=== PATIENT | female | born 1965 | race Caucasian/White ===

== ENCOUNTER 2022-12-08 15:26 | Outpatient (CLI) | payer OTHER, SELFPAY | END 2022-12-08 15:27 | disposition home or self-care (01) | PROVIDERS: PCP Family Medicine; Visit Provider Family Medicine | DX: Z00.00 Encounter for general adult medical examination without abnormal findings (principal); E78.5 Hyperlipidemia, unspecified; I10 Essential (primary) hypertension; E03.9 Hypothyroidism, unspecified; F41.9 Anxiety disorder, unspecified | CPT/HCPCS: 80053; 80061; 84439; 84443 ==

== ENCOUNTER 2023-05-20 14:41 | Outpatient (CLI) | payer OTHER, SELFPAY ==
--- OUTSIDE RECORDS SUMMARY | 2023-05-20 14:43 | XMS_ITS | Continuity of Care Document ---
Author Name Unknown Organization [facility] Address [address] [place] [address] Phone Care Team Providers Care Consulting Sales Manager Name Role Phone Nadira Martinez MD Unavailable Unavailable Allergies, Adverse Reactions, Alerts Substance Reaction Status Criticality phenobarbital Active No Information Medications Medication Instructions Dosage Effective Dates (start - stop) Status Comments nifedipine ER 30 mg tablet,extended release 24 hr DENIED - Active Tirosint 88 mcg capsule take 1 capsule by oral route every day 88 MCG - Active lisinopril 30 mg tablet take 1 tablet (30MG) by oral route every day 30 MG - Active nifedipine ER 30 mg tablet,extended release 24 hr DENIED - No Longer Active Procedures Procedure Date Office/Outpatient Visit, Est Office/Outpatient Visit, Est Office/Outpatient Visit, Est Office/Outpatient Visit, Est Office/Outpatient Visit, New Routine Venipuncture Specimen Handling Rbc Sed Rate, Nonautomated Advance Directives Directive Yes / No Effective Date File Name No Information Encounters Encounter Description Practice Location Reason(s) For Visit Diagnoses Date Provider Providers Copied on Encounter [facility] , [address], [place], [address], tel:[phone] [facility] , No Information 2201 9 Michelle Waddell. [facility] [address], [place], [address], [place]. tel:[phone] [facility] , [address], [place], [address], [place] tel:[phone] [facility] , No Information 9 Stanberry Nadira. [facility] [address], [place], [address], [place]. tel:[phone] Office/Outpa tient Visit, Est [facility] , [address], [place], [address], [place] tel:[phone] [facility] , Raynaud's Syndrome (chief complaint)C entromere antibody positivity (chief complaint)M edication management (chief complaint) Raynaud's syndrome without gangreneAnti body titer raised 7 Stanberry Nadira. [facility] [address], [place], [address], [place]. tel:[phone] Primary Practice Provider: Vannessa Caceres, [address], [address]. tel:[phone] Provider: Nadira Alvarado, [facility] [address], [place], [address]. tel:[phone] Office/Outpa tient Visit, Est [facility] , [address], [place], [address], [place] tel:[phone] [facility] , Raynaud's Syndrome (chief complaint)A bnormal Lab Study (chief complaint) Raynaud's syndrome without gangreneAnti body titer raised 0 6 Stanberry Nadira. [facility] [address], [place], [address], [place]. tel:[phone] Primary Practice Provider: Vannessa Caceres, [facility] [address], [place], [address]. tel:[phone] ng Provider: Nadira Alvarado, [facility] [address], [place], [address]. tel:[phone] Office/Outpa tient Visit, Est [facility] , [address], [place], [address], [place] tel:[phone] [facility] , Raynaud's (chief complaint)a bnormal antibody (chief complaint) Raynaud's syndromeDizz inessAbnorma l antibody titer Melo-0 2-201 5 Michelle Nadira. [facility] [address], [place], [address], [place]. tel:[phone] Primary Practice Provider: Vannessa Caceres, [facility] [address] [place], [address]. tel:[phone] Provider: Nadira Alvarado, [facility] [address], [place], [address]. tel:[phone] Office/Outpa tient Visit, Est [facility] , [address], [place], [address], [place] tel:[phone] [facility] , Raynaud's SyndromeHype rtension, UnspecifiedO ther and unspecified nonspecific immunologica l findings Apr-0 2-201 4 Stanberry Nadira. [facility] [address], [place], [address], [place]. tel:[phone] Primary Practice Provider: Vannessa Caceres, [facility] [address], [place], [address]. tel:[phone] Provider: Nadira Alvarado, [facility] [address], [place], [address]. tel:[phone] Office/Outpa tient Visit, New [facility] , [address], [place], [address], [place] tel:[phone] [facility] , Raynaud's SyndromeOthe r and unspecified nonspecific immunologica l findingsSpra in of other specified sites of hip and thigh Nov-0 5 4 Michelle Waddell. [facility] [address], [place], [address], [place]. tel:[phone] Primary Practice Provider: Vannessa Caceres, [facility] [address], [place], [address]. tel:[phone] ng Provider: Nadira Alvarado, [facility] [address], [place], [address]. tel:[phone] [facility] , [address], [place], [address], [place] tel:[phone] [facility] , No Information 0 4 Michelle Waddell. [facility] [address], [place], [address], [place]. tel:[phone] Family History Family Member Type Diagnosis Age At Onset No Information Payers Payer name Insurance type Covered green party ID Juliet swain(s) [facility] [id number] Social History Type Description Quantity Date Captured Comments Sex Female Smoking Status No Information Chief Complaint And Reason For Visit No Information Reason For Referral Reason For Referral No Information History Of Present Illness Encounter Date Complaint History Of Prese nt Illness Raynaud's Syndrome Centromere antibody positivity Medication management Abnormal Lab Study Raynaud's Syndrome Raynaud's abnormal antibody Functional Status Date Functional Assessmen t No Information Instructions Date Instruction Additional Infor elyssa The nifedipine is co ntinued without change. Related to Raynaud's syndrome without gangrene No further intervent ion is needed.FOLLOWUP: 12 months Related to Antibody titer raised Patient's initial wo rkup in this clinic revealed an antibody against the centromere. This combined with Raynaud's places the patient at high risk for developing limited systemic sclerosis. I was concerned at her first visit about her a decreased skin markings on the distal half of her fingers because this could represent early sclerodactyly. This has not progressed in 16 months. She denies heartburn. There was no evidence of telangiectasias or subcutaneous calcifications on her exam. At this time, she does not merit the diagnosis of scleroderma. Related to Abnormal antibody titer We discussed the sym ptoms of orthostatic hypotension. She seems to be describing this condition. She attributes it to poor nutrition and decreased water consumption. This no longer is an issue. She was advised that if these symtpoms returned and she was unable to treated with improvements in her oral intake then she should discuss this with her primary care provider. It could be treated by decreasing her lisinopril. Related to Dizziness The patient's Raynau d's is controlled on nifedipine 30 mg daily. She denies digital pallor and foot cyanosis over this past winter. The nifedipine will be continued without change. Related to Raynaud's syndrome Assessments Type Assessment Date No Information Patient Care Teams Name Effective Dates (start - stop) Status Members No Information
--- NOTE | 2023-05-20 15:00 | CRLHL7_ITS ---
For Patients: As a result of the Century Cures Act, medical imaging exams and procedure reports are released immediately into your electronic medical record. You may view this report before your referring provider. If you have questions, please contact your health care provider. BILATERAL SCREENING MAMMOGRAM WITH COMPUTER-AIDED DETECTION AND TOMOSYNTHESIS TECHNIQUE: CC and MLO views were obtained. These mammographic images have been obtained using full-field digital technique. These mammographic images were interpreted with the benefit of computer-aided detection. Breast Tomosynthesis was used in this interpretation. COMPARISON FILM: 10/30/21, 10/08/20,09/24/19,09/22/18,09/07/17,09/06/16,08/29/15. FINDINGS: The breasts are heterogeneously dense, which may obscure small masses IMPRESSION: There is no radiographic evidence for malignancy. ASSESSMENT: BI-RADS Category 2: Benign RECOMMENDATION: Routine screening mammogram in 1 year. A lay language report of this examination will be provided to the patient. Eric Castillo M.D. Diagnostic Radiologist [email or web address] HERNAN/Dictated by: Eric Castillo MD @ 05/24/2023 8:53:00 AM (Electronically Signed)
== END 2023-05-20 14:42 | disposition home or self-care (01) ==
LOC: MAMMO 14:41
PROVIDERS: PCP Family Medicine; Visit Provider Family Medicine
DX: Z12.31 Encounter for screening mammogram for malignant neoplasm of breast (principal); R92.2 Inconclusive mammogram
CPT/HCPCS: 77063; 77067

== ENCOUNTER 2024-01-16 07:25 | Outpatient (CLI) | payer OTHER, SELFPAY ==
--- OUTSIDE RECORDS SUMMARY | 2024-01-18 07:12 | XMS_ITS | Clinical Summary ---
Author Name Unknown Organization [facility] Address [place], [place] [address] Care Team Providers Care Academic Support Director Name Role Phone Nadira Martinez MD, PhD Unavailabl e Ana María Conklin MD Unavailable + My Small MD Primary Care Provider + Allergies Active Allergy Reactions Criticality Noted Date Comments Phenobarbital Syncope 04/11/2007 Medications Medication Sig Dispensed Refills Start Date End Date Status apremilast (OTEZLA) 30 mg tab Take by mouth. 0 04/19/2019 Active CPAPIndications:JIM (obstructive sleep apnea) CPAP machine for home use at pressure: 5-16 cm, nasal mask x1/3month with nasal cushion x2/mo; Length of need: 99 months 1 Device 7 11/17/2020 Active NIFEdipine (PROCARDIA XL) 30 mg Extended-Release tabletIndications:Ra ynaud's phenomenon without gangrene TAKE 1 TABLET(30 MG) BY MOUTH EVERY DAY BEFORE A MEAL 60 Tablet 10/08/2022 Active levothyroxine (SYNTHROID) 75 mcg tabletIndications:Hy pothyroidism, unspecified type TAKE 1 TABLET(75 MCG) BY MOUTH BEFORE BREAKFAST 90 Tablet 1 10/26/2022 Active lisinopriL (PRINIVIL; ZESTRIL) 10 mg tabletIndications:HT N (hypertension) Take 1 Tablet (10 mg) by mouth once daily. 30 Tablet 01/06/2023 Active Active Problems Problem Noted Date Diagnosed Date Excessive daytime sleepiness 09/23/2016 Oral herpes 05/31/2014 Abnormal antibody titer 12/26/2013 Overview: 12/26/2013. Low titer antibody against the centromere. Characteristic for limited systemic sclerosis, but does not meet criteria for diagnosis. Will follow up with rheumatology 6 mo Routine adult health maintenance 11/15/2013 Overview: Colonoscopy 10/2013 normal repeat in 10 years Adjustment disorder with anxiety 09/02/2011 h/o panic disorder without agoraphobia 1 Raynaud's phenomenon 10/21/2010 Overview: primary HTN (hypertension) 08/19/2009 Unspecified hypothyroidism 08/07/2009 jim, 10/19/2016 AHI 10 08/05/2009 Other psoriasis 04/11/2007 CONNER I (cervical intraepithelial neoplasia I) Overview: 08/05/2009 LSIL 08/25/2009 [place]: CONNER I 12/31/2019 NIL 07/22/2010 NIL 07/29/2011 LSIL 08/09/2011 [place]: CONNER I 03/01/2012 NIL 08/17/2012 NIL 08/24/2013 ASCUS/HPV Negative 09/04/2014 ASCUS/HPV Negative 11/14/2020 ASCUS/HPV Negative 07/29/2021: [place]: CONNER 1 (repeat pap in 1 year) Provider Plan: Colposcopy or Pap/HPV due 10/2021 (per telephone encounter dated 12/09/2020) Resolved Problems Problem Noted Date Diagnosed Date Resolved Date ASCUS favor benign 09/04/2014 Overview: HPV Neg. LSIL (low grade squamous int raepithelial lesion) on Pap smear 08/09/2011 12/09/2020 Dysthymic disorder 04/11/2007 1 Overview: anxiety/panic attack-Dr. Grayson Immunizations Name Administration Dates Next Due COVID-19 vaccine (Moderna 100mcg/0.5mL) PF, MDV 11/09/2020,10/12/2020 COVID-19 vaccine (Moderna 50mcg/0.5mL) 12YO+ BIVALENT PF, MDV 08/02/2022 COVID-19 vaccine (Moderna Fitz yari 50mcg/0.25mL) PF, MDV 07/20/2021 Influenza Virus, Unspecified 06/09/2021,06/17/20 16,07/03/2014 Influenza, IIV3 (Age >=3 years) 06/15/2011,06/19,07/31/2008 Influenza, IIV4 07/18/2019, 9,06/19/2017,2013 Influenza, IIV4 (=>6mos) MDV 06/13/2020, 07/06/2018,06/15/2018,2015,06/16/2015 Influenza, Injectable, Mdck, Quadrivalent, W/preservative 07/19/2022,06/09/2021 Td (Age >=7 Years) 12/04/2021,12/21/2001 Tdap 01/11/2023,07/29/2011 Zoster (Shingrix-RZV, recombinant) 11/06/2018, Family History Medical History Relation Name Comments Alcoholism Brother Depression Brother Heart attack Brother cardiac arrest at age 50 (otherwise healthy), angiogram, stent placed Heart Disease Father PR, stents Hypertension Father Other Father colon polyps Psychiatric illness Father Panic at [facility] Cancer Maternal Aunt 1 Ovarian canc er, diagnosed 44, 48 yr Cancer Maternal Aunt 2 cervical Stroke Maternal Grandfather Heart Disease Maternal Grandmother quad. bypass No Known Problems Mother Cancer Other [place] cervical Cancer-breast Other [place] age 46, dtr of above, who of ov ca Heart attack Other [place] cousin, son of aunt with ov ca, age 59 yr PR 08/2017. also with COPD and epilepsy Hypothyroidism Sister Psychiatric illness Sister panic, a nxiety Relation Name Status Comments Brother Alive Father (Age 78) PR/stroke Maternal Aunt 1 Maternal Aunt 2 Maternal Grandfather Maternal Grandmother Mother Alive Other [place] Alive Paternal Grandfather Paternal Grandmother Sister Alive Social History Tobacco Use Types Packs/Day Years Used Date Smoking Tobacco: Former Cigarettes 1 10 0 11/02/1983 - 11/02/1993 Smokeless Tobacco: Never Tobacco Cessation:Counseling Given: Yes Alcohol Use Standard Drinks/Week Comments Yes 0 (1 standard drink = 0.6 oz pur e alcohol) 5 drinks per week PHQ-2 Answer Date Recorded PHQ-2 TOTAL SCORE 2 12/04/2021 Social Connections Answer Date Recorded Frequency of Communication with Friends and Fami ly Not on file 09/19/2021 Financial Resource Strain Answer Date R ecorded Difficulty of Paying Living Expenses Not on file 09/19/2021 Difficulty of Paying Living Expenses Not on file 09/19/2021 Sex and Gender Information Value Date Recorded Sex Assigned at Not on file Gender Identity Not on file Sexual Orientation Not on file Obstetrics History Para Term AB IAB SAB Ectopic Multiple Livin g Live Births 2 2 Date Outcome GA Total Labor Labor/2nd/3rd Weight Sex Delivery Anes PTL Luisa A1 A5 Name Cl in Last Filed Vital Signs Vital Sign Reading Time Taken Comments Blood Pressure 118/80 06/15/2023 12:53 PM CDT Pulse 84 06/15/2023 12:53 PM CDT Temperature 36.6 ??C (97.8 ??F) 06/15/2023 12:53 PM C DT Respiratory Rate 12 06/15/2023 12:53 PM CDT Oxygen Saturation 96% 06/15/2023 12:53 PM CDT Inhaled Oxygen Concentration - - Weight 68.9 kg (152 lb) 06/15/2023 1:24 PM CDT Height 167.4 cm (5' 5.91) 12/04/2021 1:09 PM CD T Body Mass Index 24.6 12/04/2021 1:09 PM CDT Plan of Treatment Health Maintenance Due Date Last Done Comments Mammogram for age 45-75 10/30/2022 10/30/19 22 (Verified in Care Everywhere or Patient Record), 10/08/2020, 09/24/2019, Additional history exists BMI (ht and wt on same day) for age 18+ 12/04/2022 12/04/2021, 11/14/2020, 05/16/2020, Additional history exists Depression screening for age 12+ 12/04/2022 12/04/2021, 05/16/2020, 04/23/2019, Additional history exists COVID-19 vaccine series () 05/20/2023 08/02/2022, 04/22/2022, 07/20/2021, Additional history exists Colonoscopy through age 75 11/15/2023 11/15/2013 Pap test for age 21-65 01/12/2024 , 01/11/2023, 11/14/2020, Additional history exists Influenza for age 50-64 05/20/2024 07/19/20 22, 06/09/2021, 06/09/2021, Additional history exists Lipids for age 45-75 12/04/2026 12/04/2021, 05/08/2021, 05/14/2020, Additional history exists Tetanus booster 01/11/2033 01/11/2023, 11/17, 07/29/2011, Additional history exists HIV for age 15-65 Completed 09/06/2013 Hepatitis C screening for age 18-79 Completed 09/06/2013, 08/24/2013 Zoster (shingles) series for age 50+ Completed 11/06/2018, 06/01/2018 Tdap Completed 01/11/2023, 07/29/2011 Pneumococcal series for age 6-64 Aged Out No longer eligible based on patient's age to complete this topic Goals Goal Patient Goal Type Associated Problems Recent Progress Patient-Stated? Author BLOOD PRESSURE-MA INTAINS BP LESS THAN 130/80 Blood Pressure No Vannessa Haskins NP Procedures Procedure Name Priority Date/Time Associated Diagnosis Comments HPV THIN PREP Routine 01/11/2023 12:00 PM CDT LIPID PANEL W REFLEX MEASURED LDL Routine 12/04/2021 2:22 PM CDT Lipid screening SCAN-MAMMOGRAPHY REPORT 10/08/2020 12:00 AM [employer]ER ANTI HIV 1/2 Routine 09/06/2013 6:00 PM [employer] Screen for STD (sexually transmitted disease) ANTI HCV Routine 09/06/2013 6:00 PM [employer] Screen for STD (sexually transmitted disease) from Last 3 Months or Most Recently Relevant to Health Maintenance Results * HPV HIGH RISK (01/11/2023 12:00 PM CDT) TYPE 16 Negative Negative 01/14/2023 11:39 AM CDT [facility] TYPE 18 Negative Negative 01/14/2023 11:39 AM CDT [facility] OTHER HIGH RISK TYPES Negative Negative 01/14/2023 11:39 AM CDT [facility] Other (Cervical/Vagina l) 01/11/2023 12:00 PM CDT 01/12/2023 9:56 AM CDT Narrative [facility] - 01/14/2023 11:39 AM CDT HPV types 16, 18, 31, 33, 35, 39, 45, 51, 52, 56, 58, 59, 66 and 68 DNA were undetectable or below the pre-set threshold. Methodology: [employer] Joseluis 4800 HPV Test My Small MD MICROBIOLOGY [facility] [address] [place] [address], * (ABNORMAL) LIPID PANEL W REFLEX MEASURED LDL (12/04/2021 2:22 PM CDT) CHOLESTEROL,TOTAL 226(H) 100 - 199 mg/dL 12/04/2021 8:47 PM CDT [facility] TRIGLYCERIDES 135 <150 mg/dL 12/04/2021 8:47 PM CDT [facility] HDL CHOLESTEROL 74 >40 mg/dL 8:47 PM CDT [facility] NON-HDL CHOLESTEROL 152(H) <145 mg/dl 12/04/2021 8:47 PM CDT [facility] CHOL/HDL RATIO 3.05 <4.50 12/04/2021 8:47 PM CDT [facility] LDL CHOLESTEROL 125 <=130 mg/dL 12/04/2021 8:47 PM CDT [facility] VLDL CHOLESTEROL 27 <=30 mg/dL 12/04/2021 8:47 PM CDT [facility] PROVIDER ORDERED STATUS RANDOM 12/04/2021 8:47 PM CDT [facility] Blood BLOOD SPECIMEN / Unknown Venipuncture / Unknown 12/04/2021 2:22 PM CDT 12/04/2021 2:23 PM CDT Sarai MORELOS CHEMISTRY [facility] [address] [place] [address], * SCAN-MAMMOGRAPHY REPORT (10/08/2020 12:00 AM [employer]ISQUE PLACER) Anatomical Region Laterality Modality Other Scanner OTHER * ANTI HCV (09/06/2013 6:00 PM [employer]ER) ANTI HCV Non-reacti ve [facility] Blood specimen (specimen) BLOOD SPECIMEN / Unknown 09/06/2013 6:00 PM [employer]ISQUE PLACER 09/06/2013 5:56 PM BISQUE PLACER Vannessa Caceres NP SEND OUTS [facility] [place]NAL ZIP [id number] [address] [place] [address] * ANTI HIV 1/2 (09/06/2013 6:00 PM [employer]QUE PLACER) ANTI HIV 1/2 Non-reacti ve [facility] Blood specimen (specimen) BLOOD SPECIMEN / Unknown 09/06/2013 6:00 PM [employer]QUE PL[employer]ER 09/06/2013 5:56 PM [employer]QUE [employer]ER Vannessa Caceres QUALITY ASSURANCE REPRESENTATIVE [facility] OUTS 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
--- OUTSIDE RECORDS SUMMARY | 2024-01-18 07:12 | XMS_ITS | Continuity of Care Document ---
Author Name Unknown Organization [facility] Address [address] [place] [address] Phone Care Team Providers Care Drug Inspector Name Role Phone Nadira Martinez MD Unavailable [...] [address], [place], [address], tel:[phone] [facility] , No Information 2201 9 Michelle Waddell. [facility] [address], [place], [address], [place]. tel:[phone] [facility] , [address], [place], [address], [place] tel:[phone] [facility] , No Information 9 Michelle Nadira. [facility] [address], [place], [address], [place]. tel:[phone] Office/Outpa tient Visit, Est [facility] , [address], [place], [address], [place] tel:[phone] [facility] , Raynaud's Syndrome (chief complaint)C entromere antibody positivity (chief complaint)M edication management (chief complaint) Raynaud's syndrome without gangreneAnti body titer raised 7 Michelle Nadira. [facility] [address], [place], [address], [place]. tel:[phone] Primary Practice Provider: Vannessa Caceres, [address], [address]. tel:[phone] Provider: Nadira Alvarado, [facility] [address], [place], [address]. tel:[phone] Office/Outpa tient Visit, Est [facility] , [address], [place], [address], [place] tel:[phone] [facility] , Raynaud's Syndrome (chief complaint)A bnormal Lab Study (chief complaint) Raynaud's syndrome without gangreneAnti body titer raised 0 6 Michelle Nadira. [facility] [address], [place], [address], [place]. tel:[phone] Primary Practice Provider: Vannessa Caceres, [facility] [address] [facility], [place], [address]. tel:[phone] ng Provider: Nadira Alvarado, [facility] [address], [place], [address]. tel:[phone] Office/Outpa tient Visit, Est [facility] , [address], [place], [address], [place] tel:[phone] [facility] , Raynaud's (chief complaint)a bnormal antibody (chief complaint) Raynaud's syndromeDizz inessAbnorma l antibody titer Melo-0 2-201 5 [place] Nadira. [facility] [address], [place], [address], [place]. tel:[phone] Primary Practice Provider: Vannessa Caceres, [facility] [address] [place], [address]. tel:[phone] Provider: Nadira Alvarado, [facility] [address], [place], [address]. tel:[phone] Office/Outpa tient Visit, Est [facility] , [address], [place], [address], [place] tel:[phone] [facility] , Raynaud's SyndromeHype rtension, UnspecifiedO ther and unspecified nonspecific immunologica l findings Apr-0 2-201 4 Michelle Nadira. [facility] [address], [place], [address], [place]. tel:[phone] Primary Practice Provider: Vannessa Caceres, [facility] [address] [facility], [place], [address]. tel:[phone] Provider: Nadira Alvarado, [facility] [address], [place], [address]. tel:[phone] Office/Outpa tient Visit, New [facility] , [address], [place], [address], [place] tel:[phone] [facility] , Raynaud's SyndromeOthe r and unspecified nonspecific immunologica l findingsSpra in of other specified sites of hip and thigh Nov-0 5 4 Michelle Waddell. [facility] [address], [place], [address], [place]. tel:[phone] Primary Practice Provider: Vannessa Caceres, [facility] [address] [facility], [place], [address]. tel:[phone] ng Provider: Nadira Alvarado, [facility] [address], [place], [address]. tel:[phone] [facility] , [address], [place], [address], [place] tel:[phone] [facility] , No Information 0 4 Michelle Waddell. [facility] [address], [place], [address], [place]. tel:[phone] Family History Family Member Type Diagnosis Age At Onset No Information Payers Payer name Insurance type Covered constitution party ID Juliet swain(s) [facility] [id number] Social History Type Description Quantity Date Captured [...] Information Instructions Date Instruction Additional Infor elyssa No further intervent ion is needed.FOLLOWUP: 12 months Related to Antibody titer raised The nifedipine is co ntinued without change. Related to Raynaud's syndrome without gangrene Patient's initial wo rkup in this clinic [...]
--- OUTSIDE RECORDS SUMMARY | 2024-01-18 07:12 | XMS_ITS | Referral Summary ---
Author Name Unknown Organization [facility] Address [address] [place] [address] Care Team Providers Care Electrician Supervisor Name Role Phone Sarai Amaya PA-C Primary Care Provider Unav ailable Social History Tobacco Use Types Packs/Day Years Used Date Smoking Tobacco: Never Assessed Adolescent Education Answer Date Record ed Getting School Help Needed Not on file 06/26 Sex and Gender Information Value Date Recorded Sex Assigned at Not on file Gender Identity Not on file Sexual Orientation Not on file Plan of Treatment Not on file Procedures Procedure Name Priority Date/Time Associated Diagnosis Comments MA SCREENING BILATERAL W/ HEMANT Routine 10/30/2021 1:22 PM TROLLEY WIRE INSTALLER Visit for screening mammogram from Last 3 Months or Most Recently Relevant to Health Maintenance Results * MA Screen Bilateral w/Hemant (10/30/2021 1:22 PM TROLLEY WIRE INSTALLER) Anatomical Region Laterality Modality Breast Bilateral Mammography Narrative 10/30/2021 1:49 PM TROLLEY WIRE INSTALLER BILATERAL FULL FIELD DIGITAL SCREENING MAMMOGRAM WITH TOMOSYNTHESIS Performed on: 10/30/21 Compared to: 10/08/2020 and 09/24/2019 Technique: ??This study was evaluated with the assistance of Computer-Aided Detection. ??Breast Tomosynthesis was used in interpretation. Findings: The breasts have scattered areas of fibroglandular density. ?? There is no radiographic evidence of malignancy. IMPRESSION: ACR BI-RADS Category 1: Negative RECOMMENDED FOLLOW-UP: Annual routine screening mammogram The results and recommendations of this examination will be communicated to the patient. Sarai Amaya PA-C [facility] MAMMOGRAPHY ORD ERABLES from Last 3 Months or Most Recently Relevant to Health Maintenance Care Teams Electrician Supervisor Relationship Specialty Start Date End Date Sarai Amaya PA-C PCP - General 10/14/21
--- OUTSIDE RECORDS SUMMARY | 2024-01-18 07:12 | XMS_ITS | Clinical Summary ---
Author Name Unknown Organization [facility] Address [address] [place] [address] Care Team Providers Care Radiation Oncology Therapist Name Role Phone Sarai Amaya PA-C Primary [...] Orientation Not on file Plan of Treatment Health Maintenance Due Date Last Done Comments ADVANCE CARE PLANNING 1963 ANNUAL REVIEW OF HM ORDERS 1963 CT COLONOGRAPHY 1963 FIT 1963 FLEX SIG 1963 GLUCOSE 1963 sDNA (Cologuard) 1963 COLONOSCOPY 1973 COLORECTAL CANCER SCREENING 1973 HIV SCREENING 1978 HEPATITIS C SCREENING 1981 LIPID 2003 YEARLY PREVENTIVE VISIT 05/16/2021 05/16/2020 DTAP/TDAP/TD IMMUNIZATION (2 - Td or Tdap) 07/29/2021 07/29/2011, 12/21/2001 COVID-19 Vaccine ( season) 2023 07/20/2021, 11/09/2020, 10/12/2020 INFLUENZA VACCINE (#1) 2023 , 06/09/2021, 06/13/2020, Additional history exists RSV VACCINE ( & 60+) (1 - 1-dose 60+ series) 2023 PHQ-2 (once per calendar year) 2023 MAMMO SCREENING 10/30/2023 10/30/2021, 09/20, 09/24/2019, Additional history exists PAP 11/14/2023 11/14/2020 ZOSTER IMMUNIZATION Completed 11/06/2018, 8 HPV IMMUNIZATION Aged Out No longer e ligible based on patient's age to complete this topic IPV IMMUNIZATION Aged Out No longer e ligible based on patient's age to complete this topic MENINGITIS IMMUNIZATION Aged Out No l onger eligible based on patient's age to complete this topic Pneumococcal Vaccine: Pediatrics (0 to 5 Years) and At-Risk Patients (6 to 64 Years) Aged Out No longer eligible based on patient's age to complete this topic RSV MONOCLONAL ANTIBODY Aged Out No l onger eligible based on patient's age to complete this topic Procedures Procedure Name Priority Date/Time Associated Diagnosis Comments MA SCREENING BILATERAL W/ HEMANT Routine 10/30/2021 1:22 PM SENIOR NET WEB DEVELOPER Visit for screening mammogram from Last 3 Months or Most Recently Relevant to Health Maintenance Results * MA Screen Bilateral w/Hemant (10/30/2021 1:22 PM SENIOR NET WEB DEVELOPER) Anatomical Region Laterality Modality Breast Bilateral Mammography Narrative 10/30/2021 1:49 PM SENIOR NET WEB DEVELOPER BILATERAL FULL FIELD DIGITAL SCREENING MAMMOGRAM WITH [...] Recently Relevant to Health Maintenance Care Teams Radiation Oncology Therapist Relationship Specialty Start Date End Date Sarai Amaya PA-C PCP - General 10/14/21
== END 2024-01-16 07:26 | disposition home or self-care (01) ==
LOC: NFLDREF 01-18 07:10
PROVIDERS: PCP Family Medicine; Referring Provider Family Medicine; Visit Provider Family Medicine
DX: E03.9 Hypothyroidism, unspecified (principal); E78.5 Hyperlipidemia, unspecified; I10 Essential (primary) hypertension
CPT/HCPCS: 80053; 80061; 82306; 84439; 84443

== ENCOUNTER 2024-03-06 06:22 | Outpatient (CLI) | payer OTHER, SELFPAY ==
--- OUTSIDE RECORDS SUMMARY | 2024-03-06 06:27 | XMS_ITS | Referral Summary ---
Author Organization [facility] Address [address] [place] [address] Care Team Providers Care Membership Advisor Name Role Phone Sarai Amaya PA-C Primary [...] BILATERAL W/ HEMANT Routine 10/30/2021 1:22 PM BLEACH TESTER Visit for screening mammogram from Last 3 Months or Most Recently Relevant to Health Maintenance Results * MA Screen Bilateral w/Hemant (10/30/2021 1:22 PM BLEACH TESTER) Anatomical Region Laterality Modality Breast Bilateral Mammography Narrative 10/30/2021 1:49 PM BLEACH TESTER BILATERAL FULL FIELD DIGITAL SCREENING MAMMOGRAM WITH [...] Recently Relevant to Health Maintenance Care Teams Membership Advisor Relationship Specialty Start Date End Date Sarai Amaya PA-C PCP - General 10/14/21
--- OUTSIDE RECORDS SUMMARY | 2024-03-06 06:27 | XMS_ITS | Continuity of Care Document ---
Author Organization [facility] Address [address] [place] [address] Phone Care Team Providers Care Tax Manager Name Role Phone Nadira Martinez MD [...] [address], [place], [address], [place] tel:[phone] [facility] , No Information 2201 9 Michelle Waddell. [facility] [address], [place], [address], [place]. tel:[phone] [facility] , [address], [place], [address], [place] tel:[phone] [facility] , No Information 9 Michelle Nadira. [facility] [address], [place], [address], [place]. tel:[phone] Office/Outpa tient Visit, Est [facility] , [address], [place], [address], [place] tel:[phone] [facility] , Raynaud's Syndrome (chief complaint)C entromere antibody positivity (chief complaint)M edication management (chief complaint) Raynaud's syndrome without gangreneAnti body titer raised 7 [place] Nadira. [facility] [address], [place], [address], [place]. tel:[phone] Primary Practice Provider: Vannessa Caceres, [address], [address]. tel:[phone] Provider: Nadira Alvarado, [facility] [address], [place], [address]. tel:[phone] Office/Outpa tient Visit, Est [facility] , [address], [place], [address], [place] tel:[phone] [facility] , Raynaud's Syndrome (chief complaint)A bnormal Lab Study (chief complaint) Raynaud's syndrome without gangreneAnti body titer raised 6 Michelle Nadira. [facility] [address], [place], [address], [place]. tel:[phone] Primary Practice Provider: Vannessa Caceres, [facility] [address] [facility], [place], [address]. tel:[phone] Provider: Nadira Alvarado, [facility] [address], [place], [address]. tel:[phone] Office/Outpa tient Visit, Est [facility] , [address], [place], [address], [place] tel:[phone] [facility] , Raynaud's (chief complaint)a bnormal antibody (chief complaint) Raynaud's syndromeDizz inessAbnorma l antibody titer Melo-0 2-201 5 [place] Nadira. [facility] [address], [place], [address], [place]. tel:[phone] Primary Practice Provider: Vannessa Caceres, [facility] [address] [place], [address]. tel:[phone] Provider: Nadira Alvarado, [facility] [address], [place], [address]. tel:[phone] Office/Outpa tient Visit, Est [facility] , [address], [place], [address], [place] tel:[phone] [facility] , Raynaud's SyndromeHype rtension, UnspecifiedO ther and unspecified nonspecific immunologica l findings Apr-0 2-201 4 Michelle Nadira. [facility] [address], [place], [address], [place]. tel:[phone] Primary Practice Provider: Vannessa Caceres, [facility] [address] [facility], [place], [address]. tel:[phone] Provider: Nadira Alvarado, [facility] [address], [place], [address]. tel:[phone] Office/Outpa tient Visit, New [facility] , [address], [place], [address], [place] tel:[phone] [facility] , Raynaud's SyndromeOthe r and unspecified nonspecific immunologica l findingsSpra in of other specified sites of hip and thigh Nov-0 5-201 4 Michelle Waddell. [facility] [address], [place], [address], [place]. tel:[phone] Primary Practice Provider: Vannessa Caceres, [address], [address]. tel:[phone] Provider: Nadira Alvarado, [facility] [address], [place], [address]. tel:[phone] [facility] , [address], [place], [address], [place] tel:[phone] [facility] , No Information Nov-0 4 Michelle Waddell. [facility] [address], [place], [address], [place]. tel:[phone] Family History Family Member Type Diagnosis Age At Onset No Information Payers Payer name Insurance type Covered green party ID Juliet swain(s[id number] Social History Type Description Quantity Date Captured [...]
--- OUTSIDE RECORDS SUMMARY | 2024-03-06 06:27 | XMS_ITS | Clinical Summary ---
Author Organization [facility] Address [place], [place] [address] Care Team Providers Care School Bus Technician Name Role Phone Nadira Martinez MD, PhD [...] intraepithelial neoplasia I) Overview: 08/05/2009 LSIL 08/25/2009 [place]: CONNER I 12/31/2019 NIL 07/22/2010 NIL 07/29/2011 LSIL 08/09/2011 [place]: CONNER I 03/01/2012 NIL 08/17/2012 NIL 08/24/2013 ASCUS/HPV Negative 09/04/2014 ASCUS/HPV Negative 11/14/2020 ASCUS/HPV Negative 07/29/2021: [place]: CONNER 1 (repeat pap in 1 year) Provider Plan: Colposcopy or Pap/HPV due 10/2021 (per telephone encounter dated 12/09/2020) Resolved Problems Problem Noted Date Diagnosed Date Resolved Date ASCUS favor benign 09/04/2014 Overview: HPV Neg. LSIL (low grade squamous int raepithelial lesion) on Pap smear 08/09/2011 12/09/2020 Dysthymic disorder 04/11/2007 1 Overview: anxiety/panic attack-Dr. Grayson Encounters Date Type Department Care Team Description 01/23/2024 Lab Requisition [facility] [phone] My Small MD from Last 3 Months Immunizations Name Administration Dates Next Due COVID-19 [...] healthy), angiogram, stent placed Heart Disease Father NV, stents Hypertension Father Other Father colon polyps Psychiatric illness Father Panic at tacks Cancer Maternal Aunt 1 Ovarian canc er, diagnosed 44, 48 yr Cancer Maternal Aunt 2 cervical Stroke Maternal Grandfather Heart Disease Maternal Grandmother quad. bypass No Known Problems Mother Cancer Other [place]in cervical Cancer-breast Other Mcousin age 46, dtr of above, who of ov ca Heart attack Other [place] cousin, son of aunt with ov ca, age 59 yr NV 08/2017. also with COPD and epilepsy Hypothyroidism Sister Psychiatric illness Sister panic, a nxiety Relation Name Status Comments Brother Alive Father (Age 78) NV/stroke Maternal Aunt 1 Maternal Aunt 2 Maternal [...] Outcome GA Total Labor Labor/2nd/3rd Weight Sex Type Anes PTL Luisa A1 A5 Name Clin Last Filed Vital Signs Vital Sign Reading [...] Comments Mammogram for age 45-75 10/30/2022 10/30/19 (Verified in Care Everywhere or Patient Record), 10/08/2020, 09/24/2019, Additional history exists BMI (ht and wt on same day) for age 18+ 12/04/2022 12/04/2021, 11/14/2020, 05/16/2020, Additional history exists Depression screening for age 12+ 12/04/2022 12/04/2021, 05/16/2020, 04/23/2019, Additional history exists COVID-19 vaccine series ( - 2022-24 season) 2023 08/02/2022, 04/22/2022, 07/20/2021, Additional history exists Colonoscopy through age 75 11/15/2023 11/15/2013 Influenza for age 50-64 05/20/2024 07/19/20 22, 06/09/2021, 06/09/2021, Additional history exists Pap test for age 21-65 01/19/2025 , 01/20/2024, 01/11/2023, Additional history exists Lipids for age 45-75 [...] Procedure Name Priority Date/Time Associated Diagnosis Comments LAB TRACKING EVENT Routine 01/20/2024 1: 20 PM CDT ASSAYER HELPER THIN PREP PAP SCREEN IMAGED Routine 01/20/2024 1:20 PM CDT HPV THIN PREP Routine 01/20/2024 1:20 PM CDT LIPID PANEL W REFLEX MEASURED LDL Routine 12/04/2021 2:22 PM CDT Lipid screening SCAN-MAMMOGRAPHY REPORT 10/08/2020 12:00 AM AIRPLANE COVERER ANTI HIV 1/2 Routine 09/06/2013 6:00 PM AIRPLANE COVERER Screen for STD (sexually transmitted disease) ANTI HCV Routine 09/06/2013 6:00 PM AIRPLANE COVERER Screen for STD (sexually transmitted disease) from Last 3 Months or Most Recently Relevant to Health Maintenance Results * LAB TRACKING EVENT (01/20/2024 1:20 PM CDT) Other (Other) Client Collect / Unknown 01/20/2024 1:20 PM CDT 01/23/2024 3:46 PM CDT My Small MD LAB BILL ONLY [facility] [address] [place] [address], * ASSAYER HELPER THIN PREP PAP SCREEN IMAGED (01/20/2024 1:20 PM CDT) Case Report Gynecologic Cytology Report ? Case: [id number] ? Authorizing Provider: ??My Small MD ??Collected: ? 01/20/2024 1320 ? Ordering Location: ? [facility] ?Received: ?01/24/2024 0956 ? First Screen: ?Ania Mishra ? Pathologist: ? Philippe Rojas Jr., ? MD ? Specimen: ?ASSAYER HELPER ThinPrep Vial Screening, Cervical/Vaginal ? 02/02/2024 12:59 PM CDT [facility] INTERPRETATION/ RESULT NEGATIVE FOR INTRAEPITHELIAL LESION OR MALIGNANCY (NIL) (none) 02/02/2024 12:59 PM CDT [facility] R NON-NEOPLASTIC FINDING(S) Reactive cellular changes associated with inflammation/repa ir 02/02/2024 12:59 PM CDT [facility] SPECIMEN ADEQUACY Satisfactory for evaluation Endocervical component present 02/02/2024 12:59 PM CDT [facility] HPV REQUEST HPV and PAP 02/02/2024 12:59 PM CDT [facility] Date of LMP 02/02/2024 12:59 PM CDT [facility] Comment:Unknown Last Pap Date 01/11/2023 02/02/2024 12:59 PM CDT [facility] Last Pap Result NIL 12:59 PM CDT [facility] Abnormal Pap or [place] Bx in last 5 years Yes 02/02/2024 12:59 PM CDT [facility] Menstrual Status Postmenopausal 02/02/2024 12:[address] [facility] [place] Bx Done Today No 02/02/2024 12:[address] [facility] Additional Information 02/02/2024 12:[address] [facility] Comment: Interpreted at [facility] - [address] [place] [address], [place] [address] Automated Review Successful 02/02/2024 12:[address] [facility] Comment:Specimen processed s uccessfully by automated dispatcher service device, ThinPrep Imaging System, [employer] ANCILLARY TESTING ASSAYER HELPER HPV Ordered, Please see separate report 02/02/2024 12:[address] [facility] Note The pap test is a screening technique, not a diagnostic procedure. It is used primarily to screen for squamous cancers and precursor lesions. Published studies have shown that it is subject to both false negative and false positive results. The pap test should not be used as the sole means to diagnose or exclude pre-malignant and malignant lesions. 02/02/2024 12:[address] [facility] Other (Cervical/Vagina l) 01/20/2024 1:20 PM CDT 01/24/2024 9:56 AM CDT My Small MD PATHOLOGY/CYTOLO GY [facility] [address] [place] [address], * HPV HIGH RISK (01/20/2024 1:20 PM CDT) TYPE 16 Negative Negative 01/25/2024 4:55 PM CDT [facility] TYPE 18 Negative Negative 01/25/2024 4:55 PM CDT [facility] OTHER HIGH RISK TYPES Negative Negative 01/25/2024 4:55 PM CDT [facility] Other (Cervical/Vagina l) 01/20/2024 1:20 PM CDT 01/24/2024 9:56 AM CDT Narrative [facility] - 01/25/2024 4:55 PM CDT HPV types 16, 18, 31, 33, 35, 39, 45, 51, 52, 56, 58, 59, 66 and 68 DNA were undetectable or below the pre-set threshold. Methodology: Cindy Joseluis 4800 HPV Test My Small MD MICROBIOLOGY [facility] [address] [place] [address], * (ABNORMAL) LIPID PANEL W REFLEX MEASURED LDL (12/04/2021 2:22 PM CDT) CHOLESTEROL,TOTAL 226(H) 100 - 199 mg/dL 12/04/2021 8:47 PM CDT [facility] TRIGLYCERIDES 135 <150 mg/dL 12/04/2021 8:47 PM CDT [facility] HDL CHOLESTEROL 74 >40 mg/dL 8:47 PM CDT [facility] NON-HDL CHOLESTEROL 152(H) <145 mg/dl 12/04/2021 8:47 PM CDT [facility] CHOL/HDL RATIO 3.05 <4.50 12/04/2021 8:47 PM CDT [facility] LDL CHOLESTEROL 125 <=130 mg/dL 12/04/2021 8:47 PM CDT [facility] VLDL CHOLESTEROL 27 <=30 mg/dL 12/04/2021 8:47 PM CDT [facility] PROVIDER ORDERED STATUS RANDOM 12/04/2021 8:47 PM CDT [facility] Blood BLOOD SPECIMEN / Unknown Venipuncture / Unknown 12/04/2021 2:22 PM CDT 12/04/2021 2:23 PM CDT Sarai MORELOS CHEMISTRY [facility] [address] [place] [address], * SCAN-MAMMOGRAPHY REPORT (10/08/2020 12:00 AM AIRPLANE COVERER) Anatomical Region Laterality Modality Other Scanner OTHER * ANTI HCV (09/06/2013 6:00 PM AIRPLANE COVERER) ANTI HCV Non-reacti ve [facility] Blood specimen (specimen) BLOOD SPECIMEN / Unknown 09/06/2013 6:00 PM AIRPLANE COVERER 09/06/2013 5:56 PM AIRPLANE COVERER Vannessa Caceres POWER BUILDER DEVELOPER SEND OUTS [facility] INTERNAL ZIP [address] [place] [address] * ANTI HIV 1/2 (09/06/2013 6:00 PM AIRPLANE COVERER) ANTI HIV 1/2 Non-reacti ve [facility] Blood specimen (specimen) BLOOD SPECIMEN / Unknown 09/06/2013 6:00 PM AIRPLANE COVERER 09/06/2013 5:56 PM AIRPLANE COVERER Vannessa Caceres POWER BUILDER DEVELOPER SEND OUTS [facility] INTERNAL ZIP [address] [place] [address] from Last 3 Months or Most Recently Relevant to Health Maintenance Advance Directives Documents on File Type Date Recorded Patient Manufacturing Sr Engineer Expl anation Healthcare Directive 04/20/2019 2:05 PM [facility], [facility], 03/08/19 Care Teams School Bus Technician Relationship Specialty Start Date End Date My Small MD [address] [place] [address] PCP - General Family Practice 04/05/23 Nadira Martinez MD, PhD Rheumatology 09/04/14 Ana María Conklin MD [address] [place] [address] Dermatology 04/26/17
--- OUTSIDE RECORDS SUMMARY | 2024-03-06 06:27 | XMS_ITS | Clinical Summary ---
Author Organization [place] Address [address] [place] [address] Care Team Providers Care Cracker And Cookie Machine Operator Name Role Phone Sarai Amaya PA-C Primary [...] Vaccine ( season) 2023 07/20/2021, 11/09/2020, 10/12/2020 RSV VACCINE ( & 60+) (1 - 1-dose 60+ series) 2023 PHQ-2 (once per calendar year) 2023 MAMMO SCREENING 10/30/2023 10/30/2021, 09/20, 09/24/2019, Additional history exists PAP 11/14/2023 11/14/2020 INFLUENZA VACCINE (Season Ended) 2024 06/09/2021, 06/09/2021, 06/13/2020, Additional history exists ZOSTER IMMUNIZATION Completed 11/06/2018, 8 HPV IMMUNIZATION [...] BILATERAL W/ HEMANT Routine 10/30/2021 1:22 PM ASSOCIATE RESEARCH SCIENTIST Visit for screening mammogram from Last 3 Months or Most Recently Relevant to Health Maintenance Results * MA Screen Bilateral w/Hmeant (10/30/2021 1:22 PM ASSOCIATE RESEARCH SCIENTIST) Anatomical Region Laterality Modality Breast Bilateral Mammography Narrative 10/30/2021 1:49 PM ASSOCIATE RESEARCH SCIENTIST BILATERAL FULL FIELD DIGITAL SCREENING MAMMOGRAM WITH [...] Recently Relevant to Health Maintenance Care Teams Cracker And Cookie Machine Operator Relationship Specialty Start Date End Date Sarai Amaya PA-C PCP - General 10/14/21
--- NOTE | 2024-03-06 08:01 | W.ANESCHARGE ---
Anesthesia Charges Start Date/Time Anesthesia Start Date: 03/06/24 Anesthesia Start Time: 07:31 Stop Date/Time Anesthesia Stop Date: 03/06/24 Anesthesia Stop Time: 07:58
--- NOTE | 2024-03-06 09:41 | W.ANESCHARGE ---
Anesthesia Charges Start Date/Time Anesthesia Start Date: 03/06/24 Anesthesia Start Time: 07:31 Stop Date/Time Anesthesia Stop Date: 03/06/24 Anesthesia Stop Time: 07:58
== END 2024-03-06 06:23 | disposition home or self-care (01) ==
LOC: OP CLINIC 06:25
PROVIDERS: PCP Family Medicine; Visit Provider Surgery
DX: Z12.11 Encounter for screening for malignant neoplasm of colon (principal); K63.5 Polyp of colon; K57.30 Diverticulosis of large intestine without perforation or abscess without bleeding
CPT/HCPCS: 00811; 00812; 45385; 88305; J2704

== ENCOUNTER 2024-04-23 07:20 | Outpatient (CLI) | payer OTHER, SELFPAY ==
--- OUTSIDE RECORDS SUMMARY | 2024-04-23 13:32 | XMS_ITS | Clinical Summary ---
Author Organization [facility] Address [address], [place] [address] Care Team Providers Care Joint Setter Name Role Phone Unassigned, Provider Primary Care Provider Unava ilable Source Comments You are receiving this document as you are listed as the primary care provider,follow-up provider, or the patient has been referred to you for consultation.This is in compliance with the Medicare and[facility] EHR Incentive Program,which states Providers who transition their patient to another setting of careor provider of care or refers their patient to another provider of care shouldprovide summary care record for each transition of care or referral. [facility] Encounters Date Type Department Care Team Description 04/03/2024 4:00 PM CDT Office Visit [facility] [address] [address] Patricia Burgos, PT BPPV (benign paroxysmal positional vertigo), right (Primary Dx) from Last 3 Months Social History Tobacco Use Types Packs/Day Years Used Date Smoking Tobacco: Never Assessed Sex and Gender Information Value Date Recorded Sex Assigned at Not on file Gender Identity Not on file Sexual Orientation Not on file Plan of Treatment Upcoming Encounters Date Type Department Care Team (Late st Contact Info) Description 04/26/2024 8:45 AM CDT Appointment [facility] [address] [address] [place] [address] [place] [address] Health Maintenance Due Date Last Done Comments Colon Cancer Screening Plan Due 1963 Hep C Screening (Preventive Services) 1965 Mammogram 1963 HIV Screening (Preventive Services) 1979 Adult Preventive Visit 1981 DTaP/Tdap/Td (1 - Tdap) 1982 Cervical Cancer Screening Due 01/19/2000, 07/30/1998 Cholesterol 2008 Zoster/Shingles (1 of 2) 2013 COVID-19 Vaccine (1 - 2022-2 4 season) 2023 Influenza (#1) 2024 HepA Aged Out No longer eligi ble based on patient's age to complete this topic HepB Aged Out No longer eligi ble based on patient's age to complete this topic Hib Aged Out No longer eligi ble based on patient's age to complete this topic IPV (Polio) Aged Out No longer eligi ble based on patient's age to complete this topic MCV4 Aged Out No longer eligi ble based on patient's age to complete this topic Pneumococcal Aged Out No longer eligi ble based on patient's age to complete this topic Procedures Procedure Name Priority Date/Time Associated Diagnosis Comments ANATOMICAL PATH-C Routine 01/18/2000 1:1 9 PM CDT from Last 3 Months or Most Recently Relevant to Health Maintenance Results * Anatomical Path-C (01/18/2000 1:19 PM CDT) PAP Smear SEE TEXT No normal range HP CONVERSION Comment: Patient: MILO ROY ? CERVICAL CYTOLOGY REPORT Pathology # ??[id number] ?Date Obtained: ? Date Received: LMP: ?6-99 CLINICAL HIST ? 6 WKS PP. CERVICAL SMEAR SPECIMEN ADEQUACY: ?? Satisfactory. ENDOCERVICAL CELLS: ??Present. CYTOLOGIC IMPRESSION: Within Normal Limits (Negative). Verified 01/22/00 by: ??SN ? (electronic signature) 01/18/2000 1:19 PM CDT Dixon Mercado MD LAB_1 HP CONVERSION from Last 3 Months or Most Recently Relevant to Health Maintenance Care Teams Joint Setter Relationship Specialty Start Date End Date Unassigned, Provider [address] [place] [address] PCP - General 09/07/00
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
--- OUTSIDE RECORDS SUMMARY | 2024-04-23 13:32 | XMS_ITS | Clinical Summary ---
Author Organization [facility] Address [address] [place] [address] Care Team Providers Care Tongue Binder Name Role Phone Sarai Amaya PA-C Primary [...] history exists PAP 11/14/2023 11/14/2020 INFLUENZA VACCINE (#1) 2024 1, 06/09/2021, 06/13/2020, Additional history exists ZOSTER IMMUNIZATION [...] BILATERAL W/ HEMANT Routine 10/30/2021 1:22 PM [facility] Visit for screening mammogram from Last 3 Months or Most Recently Relevant to Health Maintenance Results * MA Screen Bilateral w/Hemant (10/30/2021 1:22 PM [facility]) Anatomical Region Laterality Modality Breast Bilateral Mammography Narrative 10/30/2021 1:49 PM [facility] BILATERAL FULL FIELD DIGITAL SCREENING MAMMOGRAM WITH [...] Recently Relevant to Health Maintenance Care Teams Tongue Binder Relationship Specialty Start Date End Date Sarai Amaya PA-C PCP - General 10/14/21
--- OUTSIDE RECORDS SUMMARY | 2024-04-23 13:32 | XMS_ITS | Continuity of Care Document ---
Author Organization [facility] Address [address] [place] [address] Phone Care Team Providers Care Senior Partner Name Role Phone Nadira Martinez MD Unavailable [...] [address], [place], [address], [place] tel:[phone] [facility] , No Information 2201 9 Michelle Waddell. [facility] [address], [place], [address], [place]. tel:[phone] [facility] , [address], [place], [address], [place] tel:[phone] [facility] , No Information 9 Ihlen Nadira. [facility] [address], [place], [address], [place]. tel:[phone] Office/Outpa tient Visit, Est [facility] , [address], [place], [address], [place] tel:[phone] [facility] , Raynaud's Syndrome (chief complaint)C entromere antibody positivity (chief complaint)M edication management (chief complaint) Raynaud's syndrome without gangreneAnti body titer raised 7 Ihlen Nadira. [facility] [address], [place], [address], [place]. tel:[phone] Primary Practice Provider: Vannessa Caceres, [address], [address]. tel:[phone] Provider: Nadira Alvarado, [facility] [address], [place], [address]. tel:[phone] Office/Outpa tient Visit, Est [facility] , [address], [place], [address], [place] tel:[phone] [facility] , Raynaud's Syndrome (chief complaint)A bnormal Lab Study (chief complaint) Raynaud's syndrome without gangreneAnti body titer raised 6 Ihlen Nadira. [facility] [address], [place], [address], [place]. tel:[phone] Primary Practice Provider: Vannessa Caceres, Formerly [facility] [address] [facility], [place], [address]. tel:[phone] Provider: Nadira Alvarado, [facility] [address], [place], [address]. tel:[phone] Office/Outpa tient Visit, Est [facility] , [address], [place], [address], [place] tel:[phone] [facility] , Raynaud's (chief complaint)a bnormal antibody (chief complaint) Raynaud's syndromeDizz inessAbnorma l antibody titer Melo-0 2-201 5 Michelle Nadira. [facility] [address], [place], [address], [place]. tel:[phone] Primary Practice Provider: Vannessa Caceres, [facility] [address] [place], [address]. tel:[phone] Provider: Nadira Alvarado, [facility] [address], [place], [address]. tel:[phone] Office/Outpa tient Visit, Est [facility] , [address], [place], [address], [place] tel:[phone] [facility] , Raynaud's SyndromeHype rtension, UnspecifiedO ther and unspecified nonspecific immunologica l findings Apr-0 2-201 4 Ihlen Nadira. [facility] [address], [place], [address], [place]. tel:[phone] Primary Practice Provider: Vannessa Caceres, [facility] [address] [facility], [place], [address]. tel:[phone] Provider: Nadira Alvarado, [facility] [address], [place], [address]. tel:[phone] Office/Outpa tient Visit, New [facility] , [address], [place], [address], [place] tel:[phone] [facility] , Raynaud's SyndromeOthe r and unspecified nonspecific immunologica l findingsSpra in of other specified sites of hip and thigh Nov-0 5-201 4 Michelle Waddell. [facility] [address], [place], [address], [place]. tel:[phone] Primary Practice Provider: Vannessa Caceres, [address], [address]. tel:[phone] Provider: Nadira Alvarado, [facility] [address], [place], [address]. tel:[phone] [facility] , [address], [place], [address], [place] tel:[phone] [facility] , No Information Nov-0 4 Michelle Waddell. [facility] [address], [place], [address], [place]. tel:[phone] Family History Family Member Type Diagnosis Age At Onset No Information Payers Payer name Insurance type Covered republican ID Juliet swain(s) [employer] [id number] Social History Type Description Quantity Date Captured [...]
--- OUTSIDE RECORDS SUMMARY | 2024-04-23 13:32 | XMS_ITS | Referral Summary ---
Author Organization [facility] Address [address] [place] [address] Care Team Providers Care Comic Artist Name Role Phone Sarai Amaya PA-C Primary [...] BILATERAL W/ HEMANT Routine 10/30/2021 1:22 PM BOX FINISHER Visit for screening mammogram from Last 3 Months or Most Recently Relevant to Health Maintenance Results * MA Screen Bilateral w/Hemant (10/30/2021 1:22 PM BOX FINISHER) Anatomical Region Laterality Modality Breast Bilateral Mammography Narrative 10/30/2021 1:49 PM BOX FINISHER BILATERAL FULL FIELD DIGITAL SCREENING MAMMOGRAM WITH [...] Recently Relevant to Health Maintenance Care Teams Comic Artist Relationship Specialty Start Date End Date Sarai Amaya PA-C PCP - General 10/14/21
--- OUTSIDE RECORDS SUMMARY | 2024-04-23 13:32 | XMS_ITS | Clinical Summary ---
Author Organization [facility] Address [place], [place] [address] Care Team Providers Care Veneer Stacker Name Role Phone Nadira Martinez MD, PhD [...] mouth once daily. 30 Tablet 01/06/2023 Active valACYclovir (VALTREX) 1 gram tabletIndications:Or al herpes Take 2 Tablets (2 g) by mouth two times daily. 4 Tablet 2 03/23/2024 Active Active Problems Problem Noted Date Diagnosed [...] intraepithelial neoplasia I) Overview: 08/05/2009 LSIL 08/25/2009 [facility]: [facility]NER I 12/31/2019 NIL 07/22/2010 NIL 07/29/2011 LSIL 08/09/2011 [facility]: [facility] I 03/01/2012 NIL 08/17/2012 NIL 08/24/2013 ASCUS/HPV Negative 09/04/2014 ASCUS/HPV Negative 11/14/2020 ASCUS/HPV Negative 07/29/2021: [place]: [facility] 1 (repeat pap in 1 year) Provider Plan: Colposcopy or Pap/HPV due 10/2021 (per telephone encounter dated 12/09/2020) Resolved Problems Problem Noted Date Diagnosed Date Resolved Date ASCUS favor benign 09/04/2014 Overview: HPV Neg. LSIL (low grade squamous int raepithelial lesion) on Pap smear 08/09/2011 12/09/2020 Dysthymic disorder 04/11/2007 1 Overview: anxiety/panic attack-Dr. Grayson Encounters Date Type Department Care Team Description 03/20/2024 Refill [facility] [address] [place] [address] Gayathri Garrett PA Refill Request (Valacyclovir 1gm tablets ) 03/06/2024 Lab Requisition [facility] [phone] Rekha Car MD from Last 3 Months Immunizations Name [...] healthy), angiogram, stent placed Heart Disease Father [place], stents Hypertension Father Other Father colon polyps Psychiatric illness Father Panic at tacks Cancer Maternal Aunt 1 Ovarian canc er, diagnosed 44, 48 yr Cancer Maternal Aunt 2 cervical Stroke Maternal Grandfather Heart Disease Maternal Grandmother quad. bypass No Known Problems Mother Cancer Other [place] cervical Cancer-breast Other [place] age 46, dtr of above, who of ov ca Heart attack Other Enrrique cousin, son of aunt with ov ca, age 59 yr [place] 08/2017. also with COPD and epilepsy Hypothyroidism Sister Psychiatric illness Sister panic, a nxiety Relation Name Status Comments Brother Alive Father (Age 78) [place]/stroke Maternal Aunt 1 Maternal Aunt 2 Maternal [...] Additional history exists COVID-19 vaccine series ( season) 2023 08/02/2022, 04/22/2022, 07/20/2021, Additional history [...] Associated Diagnosis Comments LAB TRACKING EVENT Routine 03/06/2024 7: 45 AM CDT PATH TISSUE EXAM Routine 03/06/2024 7:45 AM CDT HPV THIN PREP Routine 01/20/2024 1:20 PM CDT LIPID PANEL W REFLEX MEASURED LDL Routine 12/04/2021 2:22 PM CDT Lipid screening SCAN-MAMMOGRAPHY REPORT 10/08/2020 12:00 AM HR BUSINESS PARTNER CONSULTANT ANTI HIV 1/2 Routine 09/06/2013 6:00 PM HR BUSINESS PARTNER CONSULTANT Screen for STD (sexually transmitted disease) ANTI HCV Routine 09/06/2013 6:00 PM HR BUSINESS PARTNER CONSULTANT Screen for STD (sexually transmitted disease) from Last 3 Months or Most Recently Relevant to Health Maintenance Results * LAB TRACKING EVENT (03/06/2024 7:45 AM CDT) Other (Other) Client Collect / Unknown 03/06/2024 7:45 AM CDT 03/06/2024 10:07 PM CDT Rekha Car MD LAB BILL ONLY [facility] [address] [place] [id number], * PATH TISSUE EXAM (03/06/2024 7:45 AM CDT) Case Report Pathology Report ?Case: [id number] ? Authorizing Provider: ??Rekha Car MD ??Collected: ? 03/06/2024 0745 ? Ordering Location: ? [facility] ?Received: ?03/07/2024 1201 ? Pathologist: ? Blaze Mcgee MD ? Specimen: ?Cecal Polyp ? 03/09/2024 8:45 AM CDT [facility] Final Diagnosis A) COLON, CECUM, POLYPECTOMY: 1. Sessile serrated adenoma 2. Negative for overt dysplasia 3. Per the colonoscopy report: ?? a. Polyp size: 8 mm ?? b. Resection: Complete ?? c. Retrieval: Complete 03/09/2024 8:45 AM [facility] Clinical Information Screening colonoscopy. 03/09/2024 8:45 AM [facility] Gross Description A) Received in formalin are two doshi mucosal fragments measuring 10 mm in greatest dimension, which are entirely submitted in one cassette. It is labeled with the patient's name and designated cecum polyp. Bonilla Payan 03/07/2024 1:12 PM 03/09/2024 8:45 AM T [facility] Microscopic Description The final diagnosis is based on microscopic examination of appropriate sections of all specimens. 03/09/2024 8:45 AM T [facility] Additional Information Interpreted at [facility] - [address] [address] 03/09/2024 8:45 AM [facility] Other (Cecal Polyp) 03/06/2024 7:45 AM CDT 03/07/2024 12:01 PM CDT Rekha Car MD PATHOLOGY/CYTOLO GY [facility] [address] [place] [address], * HPV HIGH RISK (01/20/2024 1:20 PM CDT) TYPE 16 Negative Negative 01/25/2024 4:55 PM CDT [facility] TYPE 18 Negative Negative 01/25/2024 4:55 PM CDT [facility] OTHER HIGH RISK TYPES Negative Negative 01/25/2024 4:55 PM CDT [facility] Other (Cervical/Vagina l) 01/20/2024 1:20 PM CDT 01/24/2024 9:56 AM CDT Narrative [facility] - 01/25/2024 4:55 PM CDT HPV types 16, 18, 31, 33, 35, 39, 45, 51, 52, 56, 58, 59, 66 and 68 DNA were undetectable or below the pre-set threshold. Methodology: Cindy Joseluis 4800 HPV Test My Small MD MICROBIOLOGY Performing Organization Address City/[facility]/ZIP Co de Phone Number [facility] [address] [place] [address], * (ABNORMAL) LIPID PANEL W REFLEX MEASURED LDL (12/04/2021 2:22 PM CDT) CHOLESTEROL,TOTAL 226(H) 100 - 199 mg/dL 12/04/2021 8:47 PM CDT [facility] TRIGLYCERIDES 135 <150 mg/dL 12/04/2021 8:47 PM CDT [facility] HDL CHOLESTEROL 74 >40 mg/dL 8:47 PM CDT [facility] NON-HDL CHOLESTEROL 152(H) <145 mg/dl 12/04/2021 8:47 PM CDT [facility] CHOL/HDL RATIO 3.05 <4.50 12/04/2021 8:47 PM CDT [facility] LDL CHOLESTEROL 125 <=130 mg/dL 12/04/2021 8:47 PM CDT [facility] VLDL CHOLESTEROL 27 <=30 mg/dL 12/04/2021 8:47 PM CDT [facility] PROVIDER ORDERED STATUS RANDOM 12/04/2021 8:47 PM CDT [facility] Blood BLOOD SPECIMEN / Unknown Venipuncture / Unknown 12/04/2021 2:22 PM CDT 12/04/2021 2:23 PM CDT Sarai MORELOS [facility] [address] [place] [address], * SCAN-MAMMOGRAPHY REPORT (10/08/2020 12:00 AM HR BUSINESS PARTNER CONSULTANT) Anatomical Region Laterality Modality Other Scanner OTHER * ANTI HCV (09/06/2013 6:00 PM HR BUSINESS PARTNER CONSULTANT) ANTI HCV Non-reacti ve [facility] Blood specimen (specimen) BLOOD SPECIMEN / Unknown 09/06/2013 6:00 PM HR BUSINESS PARTNER CONSULTANT 09/06/2013 5:56 PM HR BUSINESS PARTNER CONSULTANT Vannessa Caceres NP SEND OUTS [facility] INTERNAL ZIP [address] [place] [address] * ANTI HIV 1/2 (09/06/2013 6:00 PM HR BUSINESS PARTNER CONSULTANT) ANTI HIV 1/2 Non-reacti [facility] Blood specimen (specimen) BLOOD SPECIMEN / Unknown 09/06/2013 6:00 PM HR BUSINESS PARTNER CONSULTANT 09/06/2013 5:56 PM HR BUSINESS PARTNER CONSULTANT Vannessa Caceres RECRUITER ACCOUNT MANAGER SEND OUTS [facility] INTERNAL ZIP [address] [place] [address] from Last 3 Months or Most Recently Relevant to Health Maintenance Advance Directives Documents on File Type Date Recorded Patient Social Insurance Administrator Expl anation Healthcare Directive 04/20/2019 2:05 PM [facility], [facility], 03/08/19 Care Teams Veneer Stacker Relationship Specialty Start Date End Date My Small MD [address] [place] [address] PCP - General Family Practice 04/05/23 Nadira Martinez MD, PhD Rheumatology 09/04/14 Ana María Conklin MD [address] [place] [address] Dermatology 04/26/17
== END 2024-04-23 07:21 | disposition home or self-care (01) ==
LOC: NFLDREF 13:30
PROVIDERS: PCP Family Medicine; Referring Provider Family Medicine; Visit Provider Family Medicine
DX: E78.5 Hyperlipidemia, unspecified (principal); E03.9 Hypothyroidism, unspecified
CPT/HCPCS: 80061; 84443

== ENCOUNTER 2024-05-22 08:01 | Outpatient (CLI) | payer OTHER, SELFPAY ==
--- OUTSIDE RECORDS SUMMARY | 2024-05-22 08:03 | XMS_ITS | Encounter Summary ---
Author Organization [facility] Address [address] [place] [address] Care Team Providers Care Clinical Support Associate Name Role Phone Unassigned, Provider Primary Care Provider Unava ilable Reason for Visit * Reason Comments Vestibular Encounter Details Date Type Department Care Team (Late st Contact Info) Description 04/26/2024 8:45 AM CDT Office Visit [facility] [address] [address] [place] [address] [place] [address] BPPV (benign paroxysmal positional vertigo), right (Primary Dx) Social History Tobacco Use Types Packs/Day Years Used Date Smoking Tobacco: Never Assessed Sex and Gender Information Value Date Recorded Sex Assigned at Not on file Gender Identity Not on file Sexual Orientation Not on file documented as of this encounter Progress Notes * Patricia Burgos, PT - 04/26/2024 8:45 AM CDT [facility] Progress Note Visit Number: 2 Initial Certification Period: 04/03/2024 to 07/02/24 Referring Provider: Patient Self-Referral Visit Diagnosis: 1. BPPV (benign paroxysmal positional vertigo), right Precautions: None reported SUBJECTIVE: Symptoms are less intense than before. Still feels off when she rolls over or get out of bed. A little foggy in general. OBJECTIVE Current Objective Findings: Test performed with fixation blocked (frenzel goggles on): Right hallpike: positive for dizziness and positive nystagmus: latency of nystagmus - 3 sec seconds, direction of nystagmus - R torsional / upbeat, duration of nystagmus - 10 seconds Left hallpike: negative for dizziness and negative nystagmus Right roll test: negative for dizziness and negative nystagmus Left roll test: negative for dizziness and negative nystagmus *patient fearful to move into supine position with all testing Treatment/Education Today: Canalith repositioning procedure - untimed Retesting of canals as noted above Narciso maneuver for R posterior canal performed x 2 Symptoms in positions: 1,2,3 initially, second round only position 1 Response to treatment: much improvement in sx on 2nd round. Reports she felt better after. Patient instructed in R narciso home CRM. Verbal and visual demonstrations provided. Patient instructed to complete 1-2x per day as long as they are symptomatic. They can discontinue after 2-3 days of asymptomatic treatments. Educated on importance of head positioning, and patient safety. Patient verb alized understanding, handout provided. Addressed patient questions regarding her concussions and possible relationship to BPPV. Discussed if BPPV symptoms resolve but still feeling her head symptoms can consider appt with concussion therapist. Timed Code Treatment Minutes: 0 Total Treatment Minutes: 30 Current Home Exercise Program List: R narciso ASSESSMENT/PROGRESS TOWARD GOALS: Patient is a 58 year old presenting to physical therapy with R posterior canalithaisis BPPV. Today reports lesser intensity of symptoms. With positional testing mild nystagmus still in R jenni-hallpike. Continued with narciso maneuver. Patient comfortable trying this at home now, so discussed home treatment as well. Patient would continue to benefit from skilled physical therapy in order to return toprior level of function. Functional Goals/Outcomes: DHI score will be 0 in 6 week(s). Patient will no longer have dizziness with getting in and out of bed in 6 week(s). - improving Patient will no longer have dizziness with bending in 6 week(s). improving Patient will no longer have dizziness with rolling in bed in 6 week(s). improving PLAN: Reassess canals and treat as appropriate. documented in this encounter Plan of Treatment Not on file documented as of this encounter Visit Diagnoses Diagnosis BPPV (benign paroxysmal positional vertigo), right- Primary documented in this encounter Care Teams Clinical Support Associate Relationship Specialty Start Date End Date Unassigned, Provider [address] [place] [address] PCP - General 09/07/00 documented as of this encounter
--- OUTSIDE RECORDS SUMMARY | 2024-05-22 08:03 | XMS_ITS | Clinical Summary ---
Author Organization [facility] Address [address], [place] [address] Care Team Providers Care Drug Counselor Name Role Phone Unassigned, Provider Primary Care Provider Unava ilable Source Comments You are receiving this document as you are listed as the primary care provider,follow-up provider, or the patient has been referred to you for consultation.This is in compliance with the Medicare and[facility] Hospitalcaid EHR Incentive Program,which states Providers who transition their patient to another setting of careor provider of care or refers their patient to another provider of care shouldprovide summary care record for each transition of care or referral. [facility] En[facility] Date Type Department Care Team Description 04/26/2024 8:45 AM CDT Office Visit [facility] [address] [address] Patricia Burgos, PT BPPV (benign paroxysmal positional vertigo), right (Primary Dx) 04/03/2024 4:00 PM CDT Office Visit [facility] [address] [address] Patricia Burgos, PT BPPV (benign paroxysmal positional [...] Zoster/Shingles (1 of 2) 2013 COVID-19 Vaccine ( - 2022-2 4 season) 2023 Influenza (#1) [...] ROY ? CERVICAL CYTOLOGY REPORT Pathology # ??[id number] ?Date Obtained: ? Date Received: LMP: ?6-99 CLINICAL HIST ? 6 WKS PP. CERVICAL SMEAR SPECIMEN ADEQUACY: ?? Satisfactory. ENDOCERVICAL CELLS: ??Present. CYTOLOGIC IMPRESSION: Within Normal Limits (Negative). Verified 01/22/00 by: ??SN ? (electronic signature) 01/18/2000 1:19 PM CDT Dixon Mercado MD LAB_1 HP CONVERSION from Last 3 Months or Most Recently Relevant to Health Maintenance Care Teams Drug Counselor Relationship Specialty Start Date End Date Unassigned, Provider [address] [place] [address] PCP - General 09/07/00
--- OUTSIDE RECORDS SUMMARY | 2024-05-22 08:03 | XMS_ITS | Encounter Summary ---
Author Organization [facility] Address [address] [place] [address] Care Team Providers Care Cash Register Mechanic Name Role Phone Unassigned, Provider Primary Care Provider Unava ilable Reason for Visit * Reason Comments Vestibular Encounter Details Date Type Department Care Team (Late st Contact Info) Description 04/03/2024 4:00 PM CDT Office Visit [facility] [place] [address] [place] [address] [place] [address] [place] [address] BPPV (benign paroxysmal positional vertigo), right (Primary [...] and had an initial bout of dizziness. [place] like she was floating. 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 Follow up PRN. The hot pond operator is completed by the therapist and the referring clinician's electronic signature certifies medical necessity for the plan above. documented in this encounter Plan of Treatment Not on file documented as of this encounter Visit Diagnoses Diagnosis BPPV (benign paroxysmal positional vertigo), right- Primary documented in this encounter Care Teams Cash Register Mechanic Relationship Specialty Start Date End Date Unassigned, Provider [address] [place] [address] PCP - General 09/07/00 documented as of this encounter
--- OUTSIDE RECORDS SUMMARY | 2024-05-22 08:03 | XMS_ITS | Continuity of Care Document ---
Author Organization [facility] Address [address] [place] [address] Phone Care Team Providers Care Electrical Calibrator Name Role Phone Nadira Martinez MD Unavailable [...] [address], [place], [address], [place] tel:[phone] [facility] , No Information 2201 9 Michelle Waddell. [facility] [address], [place], [address], [place]. tel:[phone] [facility] , [address], [place], [address], [place] tel:[phone] [facility] , No Information 9 [place] Nadira. [facility] [address], [place], [address], [place]. tel:[phone] Office/Outpa tient Visit, Est [facility] , [address], [place], [address], [place] tel:[phone] [facility] , Raynaud's Syndrome (chief complaint)C entromere antibody positivity (chief complaint)M edication management (chief complaint) Raynaud's syndrome without gangreneAnti body titer raised 7 [place] Nadira. [facility] [address], [place], [address], [place]. tel:[phone] Primary Practice Provider: Vannessa Caceres, [address], [address]. tel:[phone] Provider: Nadira Alvarado, [facility] [address], [place], [address]. tel:[phone] Office/Outpa tient Visit, Est [facility] , [address], [place], [address], [place] tel:[phone] [facility] , Raynaud's Syndrome (chief complaint)A bnormal Lab Study (chief complaint) Raynaud's syndrome without gangreneAnti body titer raised 6 Michelle Nadira. [facility] [address], [place], [address], [place]. tel:[phone] Primary Practice Provider: Vannessa Caceres, [facility] [address] [facility], [place], [address]. tel:[phone] Provider: Nadira Alvarado, [facility] [address], [place], [address]. tel:[phone] Office/Outpa tient Visit, Est [facility] , [address], [place], [address], [place] tel:[phone] [facility] , Raynaud's (chief complaint)a bnormal antibody (chief complaint) Raynaud's syndromeDizz inessAbnorma l antibody titer Melo-0 2-201 5 Michelle Nadira. [facility] [address], [place], [address], [place]. tel:[phone] Primary Practice Provider: Vannessa Caceres, [facility] [address] [place], [address]. tel:[phone] Provider: Nadira Alvarado, [facility] [address], [place], [address]. tel:[phone] Office/Outpa tient Visit, Est [facility] , [address], [place], [address], [place] tel:[phone] [facility] , Raynaud's SyndromeHype rtension, UnspecifiedO ther and unspecified nonspecific immunologica l findings Apr-0 2-201 4 Michelle Nadira. [facility] [address], [place], [address], [place]. tel:[phone] Primary Practice Provider: Vannessa Caceres, [facility] [address] [facility], [place], [address]. tel:[phone] Provider: Nadira Alvarado, [facility] [address], [place], [address]. tel:[phone] Office/Outpa tient Visit, New [facility] , [address], [place], [address], [place] tel:[phone] [facility] , Raynaud's SyndromeOthe r and unspecified nonspecific immunologica l findingsSpra in of other specified sites of hip and thigh Nov-0 5-201 4 Michelle [place]. [facility] [address], [place], [address], [place]. tel:[phone] Primary Practice Provider: Vannessa Caceres, [address], [address]. tel:[phone] Provider: Nadira Alvarado, [facility] [address], [place], [address]. tel:[phone] [facility] , [address], [place], [address], [place] tel:[phone] [facility] , No Information Nov-0 4 [place]. [facility] [address], [place], [address], [place]. tel:[phone] Family History Family Member Type Diagnosis Age At Onset No Information Payers Payer name Insurance type Covered green party ID Juliet swain(s) [id number] Social History Type Description Quantity Date Captured [...]
--- OUTSIDE RECORDS SUMMARY | 2024-05-22 08:03 | XMS_ITS | Referral Summary ---
Author Organization [place] Address [address] [place] [address] Care Team Providers Care Frame Tender Name Role Phone Sarai Amaya PA-C Primary [...] W/ HEMANT Routine 10/30/2021 1:22 PM SENIOR PREMIUM AUDITOR Visit for screening mammogram from Last 3 Months or Most Recently Relevant to Health Maintenance Results * MA Screen Bilateral w/Hemant (10/30/2021 1:22 PM SENIOR PREMIUM AUDITOR) Anatomical Region Laterality Modality Breast Bilateral Mammography Narrative 10/30/2021 1:49 PM SENIOR PREMIUM AUDITOR BILATERAL FULL FIELD DIGITAL SCREENING MAMMOGRAM WITH [...] Recently Relevant to Health Maintenance Care Teams Frame Tender Relationship Specialty Start Date End Date Sarai Amaya PA-C PCP - General 10/14/21
--- OUTSIDE RECORDS SUMMARY | 2024-05-22 08:03 | XMS_ITS | Clinical Summary ---
Author Organization [facility] Address [place], [place] [address] Care Team Providers Care Pari Mutuel Ticket Seller Name Role Phone Nadira Martinez MD, PhD [...] intraepithelial neoplasia I) Overview: 08/05/2009 LSIL 08/25/2009 [place]: CONNER I 12/31/2019 NIL 07/22/2010 NIL 07/29/2011 LSIL 08/09/2011 [place]: CONNER I 03/01/2012 NIL 08/17/2012 NIL 08/24/2013 ASCUS/HPV Negative 09/04/2014 ASCUS/HPV Negative 11/14/2020 ASCUS/HPV Negative 07/29/2021: [place]o: CONNER 1 (repeat pap in 1 year) [...] Type Department Care Team Description 03/20/2024 Refill [facility] [address] [place] [address] Gayathri Garrett PA Refill Request (Valacyclovir 1gm tablets ) 03/06/2024 Lab Requisition [facility] [phone] Rekha Car MD from Last 3 Months [...] healthy), angiogram, stent placed Heart Disease Father VA, stents Hypertension Father Other Father colon polyps [...] aunt with ov ca, age 59 yr VA 08/2017. also with COPD and epilepsy Hypothyroidism Sister Psychiatric illness Sister panic, a nxiety Relation Name Status Comments Brother Alive Father (Age 78) VA/stroke Maternal Aunt 1 Maternal Aunt 2 Maternal [...] 12/04/2022 12/04/2021, 05/16/2020, 04/23/2019, Additional history exists Colonoscopy through age 73 11/15/2023 11/15/2013 COVID-19 vaccine series ( season) 2024 08/02/2022, 04/22/2022, 07/20/2021, Additional history exists Influenza for age 50-64 [...] Lipid screening SCAN-MAMMOGRAPHY REPORT 10/08/2020 12:00 AM AIR QUALITY MANAGER ANTI HIV 1/2 Routine 09/06/2013 6:00 PM AIR QUALITY MANAGER Screen for STD (sexually transmitted disease) ANTI HCV Routine 09/06/2013 6:00 PM AIR QUALITY MANAGER Screen for STD (sexually transmitted disease) from Last 3 Months or Most Recently Relevant to Health Maintenance Results * LAB TRACKING EVENT (03/06/2024 7:45 AM CDT) Other (Other) Client Collect / Unknown 03/06/2024 7:45 AM CDT 03/06/2024 10:07 PM CDT Rekha Car MD LAB BILL ONLY [facility] [address] [place] [id number], * PATH TISSUE EXAM (03/06/2024 7:45 AM CDT) Case Report Pathology Report ?Case: [id number] ? Authorizing Provider: ??Rekha Car MD ??Collected: ? 03/06/2024 0745 ? Ordering Location: ? [facility] ?Received: ?03/07/2024 1201 ? Pathologist: ? Blaze Mcgee MD ? Specimen: ?Cecal Polyp ? 03/09/2024 8:45 AM CDT [facility] Final Diagnosis A) COLON, CECUM, POLYPECTOMY: 1. Sessile serrated adenoma 2. Negative for overt dysplasia 3. Per the colonoscopy report: ?? a. Polyp size: 8 mm ?? b. Resection: Complete ?? c. Retrieval: Complete 03/09/2024 8:45 AM [facility] Clinical Information Screening colonoscopy. 03/09/2024 8:45 AM [facility] Gross Description A) Received in formalin are two doshi mucosal fragments measuring 10 mm in greatest dimension, which are entirely submitted in one cassette. It is labeled with the patient's name and designated cecum polyp. Bonilla Payan 03/07/2024 1:12 PM 03/09/2024 8:45 AM T [facility] Microscopic Description The final diagnosis is based on microscopic examination of appropriate sections of all specimens. 03/09/2024 8:45 AM T [facility] Additional Information Interpreted at [facility] - [address] [address] 03/09/2024 8:45 AM [facility] Other (Cecal Polyp) 03/06/2024 7:45 AM CDT 03/07/2024 12:01 PM CDT Rekha Car MD PATHOLOGY/CYTOLO GY [facility] [address] [place] [address], * HPV HIGH RISK (01/20/2024 1:20 PM CDT) TYPE 16 Negative Negative 01/25/2024 4:55 PM CDT [facility] TYPE 18 Negative Negative 01/25/2024 4:55 PM CDT [facility] OTHER HIGH RISK TYPES Negative Negative 01/25/2024 4:55 PM CDT [facility] Other (Cervical/Vagina l) 01/20/2024 1:20 PM CDT 01/24/2024 9:56 AM CDT Narrative [facility] - 01/25/2024 4:55 PM CDT HPV types 16, 18, 31, 33, 35, 39, 45, 51, 52, 56, 58, 59, 66 and 68 DNA were undetectable or below the pre-set threshold. Methodology: Cindy Joseluis 4800 HPV Test My Small MD MICROBIOLOGY Performing Organization Address City/[facility]/ZIP Co de Phone Number [facility] [address] [place] [address], * (ABNORMAL) LIPID PANEL W REFLEX MEASURED LDL (12/04/2021 2:22 PM CDT) CHOLESTEROL,TOTAL 226(H) 100 - 199 mg/dL 12/04/2021 8:47 PM CDT [facility] TRIGLYCERIDES 135 <150 mg/dL 12/04/2021 8:47 PM CDT [facility] HDL CHOLESTEROL 74 >40 mg/dL 8:47 PM CDT [facility] NON-HDL CHOLESTEROL 152(H) <145 mg/dl 12/04/2021 8:47 PM CDT [facility] CHOL/HDL RATIO 3.05 <4.50 12/04/2021 8:47 PM CDT [facility] LDL CHOLESTEROL 125 <=130 mg/dL 12/04/2021 8:47 PM CDT [facility] VLDL CHOLESTEROL 27 <=30 mg/dL 12/04/2021 8:47 PM CDT [facility] PROVIDER ORDERED STATUS RANDOM 12/04/2021 8:47 PM CDT [facility] Blood BLOOD SPECIMEN / Unknown Venipuncture / Unknown 12/04/2021 2:22 PM CDT 12/04/2021 2:23 PM CDT Sarai MORELOS [facility] [address] [place] [address], * SCAN-MAMMOGRAPHY REPORT (10/08/2020 12:00 AM AIR QUALITY MANAGER) Anatomical Region Laterality Modality Other Scanner OTHER * ANTI HCV (09/06/2013 6:00 PM AIR QUALITY MANAGER) ANTI HCV Non-reacti ve [facility] Blood specimen (specimen) BLOOD SPECIMEN / Unknown 09/06/2013 6:00 PM AIR QUALITY MANAGER 09/06/2013 5:56 PM AIR QUALITY MANAGER Vannessa Caceres NP SEND OUTS [facility] INTERNAL ZIP [address] [place] [address] * ANTI HIV 1/2 (09/06/2013 6:00 PM AIR QUALITY MANAGER) ANTI HIV 1/[address]i [facility] Blood specimen (specimen) BLOOD SPECIMEN / Unknown 09/06/2013 6:00 PM AIR QUALITY MANAGER 09/06/2013 5:56 PM AIR QUALITY MANAGER Vannessa Caceres IMPACT HAMMER OPERATOR SEND OUTS [facility] INTERNAL ZIP [address] [place] [address] from Last 3 Months or Most Recently Relevant to Health Maintenance Advance Directives Documents on File Type Date Recorded Patient Full Decator Operator Expl anation Healthcare Directive 04/20/2019 2:05 PM [facility] CARE DIRECTIVE, [facility], 03/08/19 Care Teams Pari Mutuel Ticket Seller Relationship Specialty Start Date End Date My Small MD [address] [place] [address] PCP - General Family Practice 04/05/23 Nadira Martinez MD, PhD Rheumatology 09/04/14 Ana María Conklin MD [address] [place] [address] Dermatology 04/26/17
--- OUTSIDE RECORDS SUMMARY | 2024-05-22 08:03 | XMS_ITS | Clinical Summary ---
Author Organization [place] Address [address] [place] [address] Care Team Providers Care Scrap Metal Processing Worker Name Role Phone Sarai Amaya PA-C Primary [...] season) 2023 07/20/2021, 11/09/2020, 10/12/2020 RSV VACCINE (1 - 1-dose 60+ series) 2023 PHQ-2 [...] BILATERAL W/ HEMANT Routine 10/30/2021 1:22 PM [employer]YWOOD LAYUP LINE BACK FEEDER Visit for screening mammogram from Last 3 Months or Most Recently Relevant to Health Maintenance Results * MA Screen Bilateral w/Hemant (10/30/2021 1:22 PM PLYWOOD LAYUP LINE BACK FEEDER) Anatomical Region Laterality Modality Breast Bilateral Mammography Narrative 10/30/2021 1:49 PM PLYWOOD LAYUP LINE BACK FEEDER BILATERAL FULL FIELD DIGITAL SCREENING MAMMOGRAM WITH [...] Recently Relevant to Health Maintenance Care Teams Scrap Metal Processing Worker Relationship Specialty Start Date End Date Sarai Amaya PA-C PCP - General 10/14/21
--- NOTE | 2024-05-22 08:15 | CRLHL7_ITS ---
For Patients: As a result of the Century Cures Act, medical imaging exams and procedure reports are released immediately into your electronic medical record. You may view this report before your referring provider. If you have questions, please contact your health care provider. BILATERAL SCREENING MAMMOGRAM WITH COMPUTER-AIDED DETECTION AND TOMOSYNTHESIS TECHNIQUE: CC and MLO views were obtained. These mammographic images have been obtained using full-field digital technique. These mammographic images were interpreted with the benefit of computer-aided detection. Breast Tomosynthesis was used in this interpretation. COMPARISON FILM: 05/20/23, 10/30/21, 10/08/20. FINDINGS: There are scattered areas of fibroglandular density IMPRESSION: There is no radiographic evidence for malignancy. ASSESSMENT: BI-RADS Category 1: Negative RECOMMENDATION: Routine screening mammogram in 1 year. A lay language report of this examination will be provided to the patient. Eric Castillo M.D. Diagnostic Radiologist [email or web address] HERNAN/Dictated by: Eric Castillo MD @ 05/22/2024 9:24:00 AM (Electronically Signed)
== END 2024-05-22 08:02 | disposition home or self-care (01) ==
PROVIDERS: PCP Family Medicine; Visit Provider Family Medicine
DX: Z12.31 Encounter for screening mammogram for malignant neoplasm of breast (principal)
CPT/HCPCS: 77063; 77067

== ENCOUNTER 2024-06-14 08:30 | Outpatient (RCR) | payer OTHER, SELFPAY | END 2024-07-19 15:43 | disposition home or self-care (01) | PROVIDERS: PCP Family Medicine; Visit Provider Family Medicine | DX: M25.551 Pain in right hip (principal); Z51.89 Encounter for other specified aftercare | CPT/HCPCS: 97110; 97112; 97161 ==

== ENCOUNTER 2025-01-22 10:57 | Outpatient (CLI) | payer BC, SELFPAY | END 2025-01-22 10:58 | disposition home or self-care (01) | LOC: NFLDREF 10:59 | PROVIDERS: PCP Family Medicine; Visit Provider Family Medicine | DX: Z00.01 Encounter for general adult medical examination with abnormal findings (principal); R73.01 Impaired fasting glucose; E03.9 Hypothyroidism, unspecified; E78.5 Hyperlipidemia, unspecified; I10 Essential (primary) hypertension; Z13.21 Encounter for screening for nutritional disorder | CPT/HCPCS: 80053; 80061; 82306; 84443 ==

== ENCOUNTER 2025-02-22 08:15 | Outpatient (RCR) | payer BC, SELFPAY | END 2025-04-10 14:44 | disposition home or self-care (01) | PROVIDERS: PCP Family Medicine; Visit Provider Family Medicine | DX: H81.10 Benign paroxysmal vertigo, unspecified ear (principal); Z51.89 Encounter for other specified aftercare | CPT/HCPCS: 95992; 97110; 97112; 97162 ==

== ENCOUNTER 2025-05-30 14:39 | Outpatient (CLI) | payer BC, SELFPAY ==
--- NOTE | 2025-05-30 15:00 | CRLHL7_ITS ---
For Patients: As a result of the Century Cures Act, medical imaging exams and procedure reports are released immediately into your electronic medical record. You may view this report before your referring provider. If you have questions, please contact your health care provider. INDICATION: BILATERAL SCREENING MAMMOGRAM, ASYMPTOMATIC 59 Y/O FEMALE COMPARISON: 05/22/2024, 05/20/2023, 10/30/2021 TECHNIQUE: Digital mammogram in CC and MLO projections including computer-aided detection (CAD) and tomosynthesis. BREAST COMPOSITION: There are scattered areas of fibroglandular density. FINDINGS: No suspicious findings. ASSESSMENT: BI-RADS 1 Negative RECOMMENDATION: Annual screening mammogram. A lay language report of this examination will be provided to the patient. Dictated by: Alejandra Valle MD @ 05/31/2025 08:26:47 (Electronically Signed)
== END 2025-05-30 14:40 | disposition home or self-care (01) ==
LOC: MAMMO 14:39
PROVIDERS: PCP Family Medicine; Visit Provider Family Medicine
DX: Z12.31 Encounter for screening mammogram for malignant neoplasm of breast (principal)
CPT/HCPCS: 77063; 77067